=== PATIENT | female | born 1965 | race African-American/Black ===

== ENCOUNTER 2023-10-27 09:44 | Emergency (ER) | payer OTHER, SELFPAY ==
[2023-10-27 10:02] VITALS: BP 146/85; PULSE 63; RESP 16; TEMP 36.2; O2SAT 100
[2023-10-27 10:45] LABS: Basophils Percent Auto 0.7 % (0.2-1.2); Eosinophils Absolute Auto 0.1 K/mm3 (0-0.3); Eosinophils Percent Auto 1.7 % (0-4.4); Hematocrit 45.3 % (37.0-47.0); Hemoglobin 14.4 g/dL (12.0-15.0); Immature Granulocyte Absolute 0.01 K/mm3 (0.00-0.031); Immature Granulocyte Percent A 0.2 % (0-0.5); Lymphocytes Absolute Auto 2.55 K/mm3 (0.9-3.2); Lymphocytes Percent Auto 43.9 % (18.3-44.2); Mean Corpuscular HGB Conc 31.8 g/dl (32-36); Mean Corpuscular Hemoglobin 25.2 pg (26-34); Mean Corpuscular Volume 79.3 fl (80-100); Mean Platelet Volume 10.4 fl (7.4-10.4); Monocytes Absolute Auto 0.4 K/mm3 (0.1-0.6); Monocytes Percent Auto 7.1 % (2.6-8.5); Neutrophils Absolute Auto 2.7 K/mm3 (1.3-6.7); Neutrophils Percent Auto 46.4 % (45.5-73.1); Platelet Count Result 300 k/mm3 (150-375); Red Blood Count 5.71 M/mm3 (4.2-5.4); Red Cell Distribution Width 14.6 % (11.5-14.5); White Blood Count 5.8 K/mm3 (4.5-10.0)
[2023-10-27 10:57] LABS: Alanine Aminotransferase 20 U/L (6-35); Albumin Level 4.7 g/dL (3.5-5.1); Alkaline Phosphatase 89 U/L (38-126); Anion Gap 4 mmol/L (4-12); Aspartate Amino Transferase 23 U/L (14-36); Bilirubin,Total 0.5 mg/dL (0.2-1.3); Blood Urea Nitrogen 14 mg/dL (7-17); Calcium 9.9 mg/dL (8.4-10.2); Carbon Dioxide 28 mmol/L (22-30); Chloride 107 mmol/L (98-107); Estimated CRCL calculation 74 ml/min; Estimated Glomerular Filt Rate > 60; Glucose 94 mg/dL (65-110); Sodium 139 mmol/L (137-145)
[2023-10-27 10:58] LABS: INR 0.9; Prothrombin Time 12.4 Seconds (11.1-14.7)
[2023-10-27 10:59] LABS: Partial Thromboplastin Time 27.3 Seconds (22.3-36.8)
[2023-10-27 11:49] VITALS: BP 142/85; PULSE 34; PULSE 60; RESP 15; RESP 16; O2SAT 100
[2023-10-27 12:01] VITALS: BP 129/76; O2SAT 100
--- NOTE | 2023-10-27 12:09 | ED.GIBLEED ---
HPI - GI Bleed General Chief complaint: GI Bleed Stated complaint: blood in stool Time Seen by Provider: 10/27/23 12:04 Source: patient Mode of arrival: ambulatory Limitations: no limitations History of Present Illness HPI Narrative: 58 years old female came to the ED complaining of dark red blood with bowel movement started 6 days ago. Was seen at [facility] and was discharged to follow-up with quality assurance representative. Patient denies any fever, chills, nausea, vomiting, lightheadedness or dizziness or shortness of breath. Patient is not on anti-platelet or anticoagulant medication, history of hypertension. Related Data Allergies Allergy/AdvReac Type Severity Reaction Status Date / Time No Known Allergies Allergy Verified 10/27/23 13:23 Review of Systems Review of Systems: All systems reviewed & are unremarkable except as noted in HPI and below Exam Narrative: General appearance: Well-developed, well-nourished Skin: Normal color Head: Normocephalic, nontraumatic Eyes: Clear conjunctiva ENT: Oropharynx normal, ears normal, nose normal Neck: Supple, nontender Chest and respiratory: Airway patent, no respiratory distress, no accessory muscle use Heart: Regular rate/rhythm Abdomen: Soft, nontender, no organomegaly, quiet bowel sounds , rectal exam showed no stool in the rectal pouch, guaiac negative Vascular: Normal peripheral pulses, normal capillary refill. Musculoskeletal: Normal range of motion, nontender back Neurologic: Alert and oriented ?3, [employer] is normal as tested, no gross motor deficit Course Vital Signs Vital signs: Vital Signs Temperature 36.2 C L 10/27/23 10:02 Pulse Rate 63 10/27/23 10:02 Respiratory Rate 16 10/27/23 10:02 Blood Pressure 146/85 H 10/27/23 10:02 Pulse Oximetry 100 10/27/23 10:02 Oxygen Delivery Room Air 10/27/23 10:02 Temperature 36.2 C L 10/27/23 10:02 Pulse Rate 64 10/27/23 12:31 Respiratory Rate 18 10/27/23 12:31 Blood Pressure 133/79 10/27/23 12:31 Pulse Oximetry 100 10/27/23 12:31 Oxygen Delivery Room Air 10/27/23 10:02 MDM - GI Bleed MDM Narrative Medical decision making narrative: patient came with dark red blood with bowel movement, Blood workup today showed hemoglobin of 14.4, no previous labs for comparison, Patient is not on anti-platelet or anticoagulant medication. My plan to discharge patient on Protonix and follow up with quality assurance representative. Differential Diagnosis Differential diagnosis: Likely hemorrhoids, gastritis, Upper gastrointestinal hemorrhage, Lower gastrointestinal hemorrhage and melena Lab Data 10/27/23 10:39 10/27/23 10:39 Labs: Lab Results 10/27/23 Range/Units 10:39 WBC 5.8 (4.5-10.0) K/mm3 RBC 5.71 H (4.2-5.4) M/mm3 Hgb 14.4 (12.0-15.0) g/dL Hct 45.3 (37.0-47.0) % MCV 79.3 L (80-100) fl MCH 25.2 L (26-34) pg MCHC 31.8 L (32-36) g/dl RDW 14.6 H (11.5-14.5) % Plt Count 300 (150-375) k/mm3 MPV 10.4 (7.4-10.4) fl Immature Gran % (Auto) 0.2 (0-0.5) % Neut % (Auto) 46.4 (45.5-73.1) % Lymph % (Auto) 43.9 (18.3-44.2) % [place] % (Auto) 7.1 (2.6-8.5) % Eos % (Auto) 1.7 (0-4.4) % Baso % (Auto) 0.7 (0.2-1.2) % Lymph # (Auto) 2.55 (0.9-3.2) K/mm3 [place]inn # (Auto) 0.4 (0.1-0.6) K/mm3 Eos # (Auto) 0.1 (0-0.3) K/mm3 Baso # (Auto) 0.0 (0.0-0.1) K/mm3 Abs Immat Gran (auto) 0.01 (0.00-0.031) K/mm3 Absolute Neuts (auto) 2.7 (1.3-6.7) K/mm3 Absolute Nucleated RBC 0.000 (0.0-0.012) K/mm3 Nucleated RBC % 0.0 (0.0-0.2) % PT 12.4 (11.1-14.7) Seconds INR 0.9 APTT 27.3 (22.3-36.8) Seconds Sodium 139 (137-14
[2023-10-27 12:16] VITALS: BP 134/79; O2SAT 100
[2023-10-27 12:31] VITALS: BP 133/79; PULSE 64; RESP 18; O2SAT 100
[2023-10-27] MEDS: Please add drug allergy info to patient profile. 1 EACH XX (13:23)
[2023-10-27] MEDS: SODIUM CHLORIDE 0.9% IV 1,000 ML 999 ML IV CONT (13:23)
[2023-10-27] MEDS: PANTOPRAZOLE SODIUM IV 40 MG VIAL IV PUSH (13:24)
[2023-10-27 14:34] VITALS: BP 128/76; PULSE 62; RESP 15; TEMP 36.8; O2SAT 100
== END 2023-10-27 14:36 | disposition home or self-care (01) ==
PROVIDERS: Emergency Medicine; Emergency Provider Emergency Medicine; PCP Internal Medicine
DX: K62.5 Hemorrhage of anus and rectum (principal)
CPT/HCPCS: 36415; 80053; 85025; 85610; 85730; 96361; 96374; 99284; C9113; J7030

== ENCOUNTER 2023-12-17 01:11 | Day surgery (SDC) | payer OTHER, SELFPAY ==
[2023-11-27 15:02] VITALS: BMI 29.1
[2023-12-17 11:49] VITALS: BP 160/91; PULSE 65; RESP 19; TEMP 36.2; O2SAT 100
[2023-12-17] MEDS: LACTATED RINGERS 1,000 ML 150 ML IV CONT (12:09)
--- NOTE | 2023-12-17 12:11 | WPDANESEPPF ---
Anes - Initial Pre Proc Eval Procedure: Operation Date: 12/17/23 13:00 Proposed Procedures p Colonoscopy - Wagner Calzada MD Date/Time: 12/17/23 12:11 Surgeon: Wagner Calzada MD Pre Op Diagnosis: Hemorrhage of anus and rectum Patient Data Age: 58 Gender: F Height: 1.63 m Weight: 73.5 kg Last Vital Signs Temp 97.2 F L 12/17/23 11:49 Pulse 65 12/17/23 11:49 Resp 19 12/17/23 11:49 BP 160/91 H 12/17/23 11:49 Pulse Ox 100 12/17/23 11:49 O2 Del Method Room Air 12/17/23 11:49 Allergies Allergy/AdvReac Type Severity Reaction Status Date / Time No Known Allergies Allergy Verified 12/17/23 11:48 Home Medications Medication Instructions Recorded Confirmed Type pantoprazole 40 mg tablet,delayed 40 mg PO QAM 30 days #30 tabs 10/27/23 11/27/23 Rx release (Protonix) amlodipine 5 mg tablet 5 mg PO DAILY 11/27/23 11/27/23 History cholecalciferol (vitamin D3) 125 125 mcg PO DAILY 11/27/23 11/27/23 History mcg (5,000 unit) capsule telmisartan 20 mg tablet 20 mg PO DAILY 11/27/23 11/27/23 History Patient hx anesthesia problems: none Family hx anesthesia problems: none Results Review: All pre-operative results and documents have been reviewed as part of the pre-operative evaluation. [facility] Social History Social History Living arrangements: with family Spiritual care concerns: No Anes - Eval Final PreProcedure Day of Procedure 12/17/23 12:11 Patient weight: normal Heart: regular rate and rhythm Lungs: clear to auscultation Airway: Mallampati scale class II Neurological: alert and oriented Last oral intake: >/= 8 hours ASA classification: II Emergent: no Anesthetic plan: proceed Anesthesia type and monitoring: general GIVS and standard monitoring Results Review: All pre-operative results and documents have been reviewed as part of the pre-operative evaluation. Informed Consent: The patient's anesthetic plan and its attendant risks and benefits were discussed with the patient/family/POA. Questions were solicited and answers provided to the satisfaction of the patient/family/POA.
--- NOTE | 2023-12-17 13:04 | PM.HPGS ---
History of Present Illness History of Present Illness Consent: Risks, benefits, and alternatives have been discussed and questions answered. Patient agrees to proceed with procedure. Chief complaint: Hemorrhage of anus and rectum Narrative: Zoey Sepulveda is a 58 year old female with intermittent rectal bleeding, last colonoscopy 2 years ago Review of Systems Review of Systems: All systems reviewed & are unremarkable except as noted in HPI and below PMFSH Social History Social History Living arrangements: with family Spiritual care concerns: No Meds Home Medications and Allergies Home Medications Medication Instructions Recorded Confirmed Type pantoprazole 40 mg tablet,delayed 40 mg PO QAM 30 days #30 tabs 10/27/23 11/27/23 Rx release (Protonix) amlodipine 5 mg tablet 5 mg PO DAILY 11/27/23 11/27/23 History cholecalciferol (vitamin D3) 125 125 mcg PO DAILY 11/27/23 11/27/23 History mcg (5,000 unit) capsule telmisartan 20 mg tablet 20 mg PO DAILY 11/27/23 11/27/23 History Allergies Allergy/AdvReac Type Severity Reaction Status Date / Time No Known Allergies Allergy Verified 12/17/23 11:48 Vital Signs Vital Signs - 24 hr 12/17/23 11:49 Temperature 97.2 F L Pulse Rate 65 Respiratory Rate 19 Blood Pressure 160/91 H Pulse Oximetry 100 Oxygen Delivery Room Air Exam Const: General: comfortable and no acute distress HENMT: Face/Nose/Sinus: Normal nares present Eyes: General: appearance normal, both eyes and all related structures Neck: Neck: no JVD Resp: Auscultation: clear to auscultation bilaterally Cardio: Rate: regular rate Rhythm: regular rhythm GI: Inspection: non-distended GI Palp: Yes Soft to palpation Skin: General skin exam: normal color Neuro: General: gait normal Speech: normal speech Extrem: General: normal to inspection Psych: Mental Status: mental status grossly normal Assessment and Plan Assessment and plan (1) Rectal bleed: Code(s): K62.5 - Hemorrhage of anus and rectum Status: Inactive Assessment and Plan: colonoscopy
[2023-12-17 13:22] VITALS: BP 121/76; PULSE 77; RESP 16; O2SAT 100
[2023-12-17 13:32] VITALS: BP 127/76; PULSE 74; RESP 14; O2SAT 100
[2023-12-17 13:42] VITALS: BP 138/73; PULSE 63; RESP 11; O2SAT 100
== END 2023-12-17 13:51 | disposition home or self-care (01) ==
PROVIDERS: PCP Internal Medicine; Visit Provider Internal Medicine Gastroenterology
PROC: 0DJD8ZZ Inspection of Lower Intestinal Tract, Via Natural or Artificial Opening Endoscopic (ICD-10-PCS; CPT 45378; principal; 2023-12-17 13:00)
DX: D12.3 Benign neoplasm of transverse colon (principal); D12.4 Benign neoplasm of descending colon; K63.5 Polyp of colon; K64.8 Other hemorrhoids
CPT/HCPCS: 45385; 45380; 88305; J2704; J7120

== ENCOUNTER 2024-05-16 19:19 | Emergency (ER) | payer OTHER, SELFPAY ==
--- NOTE | ~2024-05-16 | CT_ITS ---
CT ANGIOGRAM NECK AND HEAD History: Dizziness. Technique: Axial noncontrast imaging of the brain was performed. Serial spiral axial images through t he head and neck were then obtained during arterial phase IV injection of 100 cc of Omnipaque 350. 3- D postprocessing and MIP images were then reconstructed on the remote workstation. Dose reduction di hnique was used on this scan by utilizing automated exposure control and iterative reconstruction di hnique. The dose-length product (DLP) was 1652.98 mGy-cm. CTA neck findings: Bilateral vertebral arteries are patent. Right vertebral artery is relatively hyp oplastic, and terminates as the right PICA. Bilateral common carotid, internal carotid, and external carotid arteries are patent. No stenosis or large vessel occlusion. No aneurysm. The proximal right i nternal carotid artery demonstrates 0% stenosis relative to the normal distal artery lumen diameter. The proximal left internal carotid artery demonstrates 0% stenosis relative to the normal distal adin ry lumen diameter. CTA head findings: Basilar artery and posterior cerebral arteries are patent. Distal internal carotid arteries, middle cerebral arteries, and anterior cerebral arteries are patent. No stenosis or large vessel occlusion. There is a 4 mm aneurysm at the distal ophthalmic/proximal supraclinoid segment of the distal left internal carotid artery (series 6 image 78).. Axial noncontrast imaging of the brain is unremarkable. No acute infarct, internal hemorrhage or mass lesion identified. Reyes-white differentiation preserved. No mass effect or midline shift. The ventri cles and subarachnoid spaces are nondilated. Paranasal sinuses and mastoid air cells are clear. Charisma rium intact. Impression: No stenosis or large vessel occlusion. 4 mm aneurysm at the left distal ophthalmic/proximal supraclinoid segment of the distal left internal carotid artery, as detailed above. Reviewed, dictated and finalized at location M. Impression: No stenosis or large vessel occlusion. 4 mm aneurysm at the left distal ophthalmic/proximal supraclinoid segment of th e distal left internal carotid artery, as detailed above.
[2024-05-16 19:31] VITALS: BP 146/81; PULSE 70; RESP 17; TEMP 36.7; O2SAT 100
--- NOTE | 2024-05-16 22:02 | ECG_ITS ---
Test Date: 2024-05-16 22:49:26 Measurements Intervals [place] Rate: 61 P: 57 NV: 130 QRS: 52 QRSD: 130 T: 43 QT: 453 QTc: 459 Interpretive Statements SINUS RHYTHM RIGHT BUNDLE BRANCH BLOCK [120+ ms QRS DURATION, UPRIGHT V1, 40+ ms S IN I/aVL/V4/V5/V6] No previous ECG available for comparison Electronically Signed On 05-17-2024 10:58:48 CDT by Sam Rivas M.D.
--- NOTE | 2024-05-16 22:02 | ED_ITS ---
HPI - Dizziness General Chief Complaint: Dizziness Stated Complaint: dizziness, HTN x1week Time Seen by Provider: 05/16/24 21:49 Source: patient and family Mode of arrival: ambulatory Limitations: no limitations History of Present Illness HPI Narrative: Patient presents with dizziness of 2 weeks duration And getting worse. There has been a medication change recently in her amlodipine was increased from 5 mg to 10 mg 2 weeks ago. Despite she has noted she checks her blood pressure at home she has remained hypertensive during these 2 weeks as well. patient is pressure medication as prescribed by her primary care physician. She denies any slurred speech, shortness of breath, fever, nausea, vomiting, or recent travel. she and her deny any sense of confusion or altered mental status or behavior changes. She describes the dizziness as a room spinning sensation which occurs intermittently. she states she occasionally has a headache but has taken any medications for this. Denies ear pain, tinnitus. She denies this ever occurring before. She states that since her dizziness seem to be related to when she moves from a seated to standing position and especially with moving her head And eyes though no clearly identifiable trigger moving her head. Denies chest pain she has had chest fluttering. no unilateral symptoms. She states she has had decreased sleep because of her symptoms. Related Data Home Medications Medication Instructions Recorded Confirmed amlodipine 5 mg tablet 5 mg PO DAILY 11/27/23 11/27/23 cholecalciferol (vitamin D3) 125 125 mcg PO DAILY 11/27/23 11/27/23 mcg (5,000 unit) capsule telmisartan 20 mg tablet 20 mg PO DAILY 11/27/23 11/27/23 Allergies Allergy/AdvReac Type Severity Reaction Status Date / Time No Known Allergies Allergy Verified 05/16/24 19:20 [facility] Past Medical History Medical History (Updated 05/17/24 @ 14:16 by Tanisha Lai MD) Hypertension Social History Social History Living arrangements: with family Occupation/Education: occupation Additional occupation/education comments: Works at [employer] Spiritual care concerns: No Exam Narrative: GENERAL: Well-appearing, well-nourished, and in no acute distress. HEAD: Normocephalic, atraumatic. EYES: Non injected, non icteric ENT: Nares clear, no rhinorrhea or epistaxis. bilateral tympanic membranes normal pearly gonzales without significant cerumen or evidence of effusion, erythema, bulging. NECK: Supple. CHEST: Speaking in full sentences. No respiratory distress. HEART: Regular rate and rhythm. . ABDOMEN: Soft, nondistended. EXTREMITIES: Normal range of motion. No lower extremity edema. SKIN: Warm, dry, no rash. NEURO: No focal deficits. Alert and oriented x3. Sensation intact to touch throughout bilateral upper and lower extremities. No nystagmus. No abnormal movements appreciated. Speaks clearly without aphasia or dysarthria. PSYCH: Normal mood and affect. Course Vital Signs Vital signs: Vital Signs Temperature 98.0 F 05/16/24 19:31 Pulse Rate 70 05/16/24 19:31 Respiratory Rate 17 05/16/24 19:31 Blood Pressure 146/81 H 05/16/24 19:31 Pulse Oximetry 100 05/16/24 19:31 Oxygen Delivery Room Air 05/16/24 19:31 Temperature 97.9 F 05/17/24 04:10 Pulse Rate 78 05/17/24 04:10 Respiratory Rate 16 05/17/24 04:10 Blood Pressure 120/82 05/17/24 04:10 Pulse Oximetry 100 05/17/24 04:10 Oxygen Delivery Room Air 05/16/24 19:31 MDM - Dizziness MDM Narrative Medical decision making narrative: Patient presents with report dizziness described as a room spinning sensation 2 weeks duration. She had a medication change recently with her amlodipine dosage was increased from 5 mg to 10 mg by her primary care physician. Despite this, she notes that she has remained hypertensive when she checks her blood pressure at home. In the emergency department she is afebrile with vital signs notable for mild hypertension. Patient describes vertiginous symptoms. Although not distinctly BPPV, she does indicate that position changes, including moving her head and eyes seems to make symptoms worse. For this reason, initially trialed meclizine. Patient is reassessed at approximately 12:[address] results. She notes that the medication she was given helped a little she is feeling bit better although still a bit lightheaded. Will give diazepam as a second-line agent. Patient is reassessed at approximately 1:00 a.m.. She has not yet received her diazepam Thus still states that she is a bit dizzy. We did discuss the findings of her CT head which noted an aneurysm that was incidentally found. Patient states that she knows that she has had a head CT before that showed something although she does not know what. This was before she was with her primary care physician Dr. Ruffin. we discussed the importance of outpatient follow-up management/surveillance of this and that the dimensions and details from the radiology study would be included in her discharge instructions so that there can be a comparison from previous to now for further decision making. Patient is resting comfortably every time I assessed her and she is with her eyes closed. However, she does state that the headache and dizziness has made it difficult her to sleep and she has not slept in 3 days. Will give IV fluids and a headache cocktail and reassess. upon re-evaluation, patient states she has notable improvement of her symptoms. She sits up in the bed eagerly states she needs to get changed and get around to work. patient states she has not ever called work. Patient encouraged to take the day off to rest and maintain her hydration and she does agree. Work note provided. Patient follow-up with her primary care physician. Prescription for meclizine provided. Differential Diagnosis Differential diagnosis: Likely adverse reaction to drug, benign paroxysmal positional vertigo, orthostatic hypotension, vertebral basilar insufficiency, cerebrovascular accident, acute vestibular neuronitis and transient cerebral ischemia Lab Data Attestation: I reviewed the patient's lab results. 05/16/24 22:44 05/16/24 22:44 Labs: Lab Results 05/16/24 Range/Units 22:44 WBC 6.5 (4.5-10.0) K/mm3 RBC 4.89 (4.2-5.4) M/mm3 Hgb 12.7 (12.0-15.0) g/dL Hct 38.5 (37.0-47.0) % MCV 78.7 L (80-100) fl MCH 26.0 (26-34) pg MCHC 33.0 (32-36) g/dl RDW 14.6 H (11.5-14.5) % Plt Count 278 (150-375) k/mm3 MPV 10.3 (7.4-10.4) fl Immature Gran % (Auto) 0.2 (0-0.5) % Neut % (Auto) 38.0 L (45.5-73.1) % Lymph % (Auto) 50.7 H (18.3-44.2) % [place] % (Auto) 9.2 H (2.6-8.5) % Eos % (Auto) 1.4 (0-4.4) % Baso % (Auto) 0.5 (0.2-1.2) % Lymph # (Auto) 3.29 H (0.9-3.2) K/mm3 [place] # (Auto) 0.6 (0.1-0.6) K/mm3 Eos # (Auto) 0.1 (0-0.3) K/mm3 Baso # (Auto) 0.0 (0.0-0.1) K/mm3 Abs Immat Gran (auto) 0.01 (0.00-0.031) K/mm3 Absolute Neuts (auto) 2.5 (1.3-6.7) K/mm3 Absolute Nucleated RBC 0.000 (0.0-0.012) K/mm3 Nucleated RBC % 0.0 (0.0-0.2) % Sodium 140 (137-145) mmol/L Potassium 3.4 (3.4-5.0) mmol/L Chloride 109 H (98-107) mmol/L Carbon Dioxide 27 (22-30) mmol/L Anion Gap 4 (4-12) mmol/L BUN 15 (7-17) mg/dL Creatinine 0.80 (0.7-1.0) mg/dL Estim Creat Clear Calc 67 ml/min Estimated GFR > 60 (59 - ) Glucose 94 (65-110) mg/dL Calcium 9.5 (8.4-10.2) mg/dL Magnesium 2.0 (1.6-2.3) mg/dL Total Bilirubin 0.3 (0.2-1.3) mg/dL AST 21 (14-36) U/L ALT 15 (6-35) U/L Alkaline Phosphatase 88 (38-126) U/L Troponin I < 0.012 (0.000-0.034) ng/mL Total Protein 7.0 (6.3-8.2) g/dL Albumin 4.2 (3.5-5.1) g/dL Influenza A (RT-PCR) Negative (Negative) Influenza B (RT-PCR) Negative (Negative) RSV (RT-PCR) Negative (Negative) SARS-CoV-2 RNA (RT-PCR) Negative (Negative) Imaging Data Radiologist's impression: Stat Rad CT Head: no evidence of acute intracranial abnormality. No evidence of acute large vessel transcortical infarct. No ICH, mass effect or edema. Stat Rad CTA Head: No evidence of acute large vessel occlusion. 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 Hypoplastic right vertebral artery V4 segment. Stat Rad CTA Neck: patent carotid and vertebral arteries without evidence of dissection or high-grade stenosis. Biapical scarring. ECG Data EKG #1: Attestation: I personally reviewed and interpreted this ECG as follows: ECG completion date: 05/16/24 ECG completion time: 22:49 Prior ECG tracings: not available for review ( No prior for comparison) Interpretation: Sinus rhythm at a rate of 61 beats per minute. AR interval 130. QRS 130. QT/ QTC 453/456. RBBB given QRS greater [id number]; RSR' M-shaped pattern in V1-V3; wide, slurred S wave in lateral leads (I, aVL, V5-6). Good R-wave progression across the precordial leads otherwise. No T-wave inversions. Discharge Plan Discharge Clinical Impression: Right bundle branch block (RBBB) on electrocardiogram (ECG), Aneurysm, cerebral, nonruptured, Vertigo Patient Disposition: Home, Self-Care Condition: Stable Instructions: Antibiotic Form, Vertigo (DC), Dizziness (ED) Additional Instructions: Rest and maintain your hydration. the cause of your symptoms is unclear. YOu can trial the prescribed medication. 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 Hypoplastic right vertebral artery V4 segment return to the emergency department with any new or worsening symptoms. Prescriptions: New meclizine 25 mg tablet 25 mg PO BID PRN (Reason: dizziness) Qty: 30 0RF No Action amlodipine 5 mg tablet 5 mg PO DAILY telmisartan 20 mg tablet 20 mg PO DAILY cholecalciferol (vitamin D3) 125 mcg (5,000 unit) capsule 125 mcg PO DAILY pantoprazole [Protonix] 40 mg tablet,delayed release (DR/EC) 40 mg PO QAM 30 Days Qty: 30 0RF Follow-up/Referrals: Augustin,MD Hassan ([place]) [Primary Care Provider] - Stand Alone Forms: Work/School Release IP Time of Disposition: 03:45
[2024-05-16 22:55] LABS: Basophils Percent Auto 0.5 % (0.2-1.2); Eosinophils Absolute Auto 0.1 K/mm3 (0-0.3); Eosinophils Percent Auto 1.4 % (0-4.4); Hematocrit 38.5 % (37.0-47.0); Hemoglobin 12.7 g/dL (12.0-15.0); Immature Granulocyte Absolute 0.01 K/mm3 (0.00-0.031); Immature Granulocyte Percent A 0.2 % (0-0.5); Lymphocytes Absolute Auto 3.29 K/mm3 (0.9-3.2); Lymphocytes Percent Auto 50.7 % (18.3-44.2); Mean Corpuscular Volume 78.7 fl (80-100); Mean Platelet Volume 10.3 fl (7.4-10.4); Monocytes Absolute Auto 0.6 K/mm3 (0.1-0.6); Monocytes Percent Auto 9.2 % (2.6-8.5); Neutrophils Absolute Auto 2.5 K/mm3 (1.3-6.7); Platelet Count Result 278 k/mm3 (150-375); Red Blood Count 4.89 M/mm3 (4.2-5.4); Red Cell Distribution Width 14.6 % (11.5-14.5); White Blood Count 6.5 K/mm3 (4.5-10.0)
[2024-05-16 23:07] LABS: Alanine Aminotransferase 15 U/L (6-35); Albumin Level 4.2 g/dL (3.5-5.1); Alkaline Phosphatase 88 U/L (38-126); Anion Gap 4 mmol/L (4-12); Aspartate Amino Transferase 21 U/L (14-36); Bilirubin,Total 0.3 mg/dL (0.2-1.3); Blood Urea Nitrogen 15 mg/dL (7-17); Calcium 9.5 mg/dL (8.4-10.2); Carbon Dioxide 27 mmol/L (22-30); Chloride 109 mmol/L (98-107); Estimated CRCL calculation 67 ml/min; Estimated Glomerular Filt Rate > 60; Glucose 94 mg/dL (65-110); Potassium 3.4 mmol/L (3.4-5.0); Sodium 140 mmol/L (137-145)
[2024-05-16 23:18] LABS: Troponin I < 0.012 ng/mL (0.000-0.034)
[2024-05-16] MEDS: MECLIZINE HCL 25 MG TABLET PO (23:23)
[2024-05-16 23:31] LABS: Influenza A QL RT-PCR Negative (Negative); Influenza B QL RT-PCR Negative (Negative); RSV RNA, RT-PCR Negative (Negative); SARS-CoV-2 RNA PCR Negative (Negative)
[2024-05-17] MEDS: diazePAM INJ (*CRX) 10 MG/2 ML SYRINGE 2 MG IV PUSH (00:56)
[2024-05-17 00:57] VITALS: BP 127/87; PULSE 72; RESP 17; O2SAT 100
[2024-05-17] MEDS: SODIUM CHLORIDE 0.9% IV 1,000 ML 999 ML IV CONT (02:14)
[2024-05-17] MEDS: PROCHLORPERAZINE EDISYLATE 10 MG/2 ML VIAL IV PUSH (02:14)
[2024-05-17] MEDS: KETOROLAC 15 MG/ML VIAL (*BKC) IV PUSH (02:15)
[2024-05-17] MEDS: diphenhydrAMINE HCl INJ 50 MG/ML VIAL 15 MG IV PUSH (02:15)
[2024-05-17 04:10] VITALS: BP 120/82; PULSE 78; RESP 16; TEMP 36.6; O2SAT 100
== END 2024-05-17 04:14 | disposition home or self-care (01) ==
PROVIDERS: Emergency Provider Student in an Organized Health Care Education/Training Program; PCP Internal Medicine
DX: I67.1 Cerebral aneurysm, nonruptured (principal); I45.10 Unspecified right bundle-branch block; R42 Dizziness and giddiness; Z20.822 Contact with and (suspected) exposure to COVID-19; I10 Essential (primary) hypertension
CPT/HCPCS: 36415; 70496; 70498; 80053; 83735; 84484; 85025; 87637; 93005; 96361; 96374; 96375; 99284; A9270; J0780; J1200; J1885; J3360; J7030; Q9967